=== PATIENT | male | born 1990 | race Caucasian/White ===

== ENCOUNTER 2017-01-08 10:47 | Emergency (ER) | payer BC ==
--- NOTE | 2017-01-08 11:07 | ER Document Report ---
ED Medical Screen (RME) - General Chief Complaint: Headache Stated Complaint: HEAD PAIN Time seen by provider: 11:05 Mode of Arrival: Ambulatory Information source: Patient Notes: 26-year-old male presents to ED for severe level V out of 5 headache to the right side of his head to include his right cheek ear taoist. He states it woke him up from his sleep this morning around 2 AM it was a constant throbbing. States he does have a runny nose and he does have a cough cavity to his wisdom teeth on the right. When I palpated the tooth to go home and all around and he denied any pain. I looked in his ear there is no otitis media or otitis externa. His a past medical history of a ruptured spleen tonsil and adenoid removal and tendon damage to the left ankle. He also states he has a history of a very bad sinusitis. Consult to Dr. Nascimento and will order a CAT scan of the head. I have greeted and performed a rapid initial assessment of this patient. A comprehensive ED assessment and evaluation of the patient, analysis of test results and completion of medical decision making process will be conducted by an additional ED providers. TRAVEL OUTSIDE OF THE [place] IN LAST 30 DAYS: No - HPI Onset: This morning - Related Data Allergies/Adverse Reactions: No Known Allergies Allergy (Verified 01/08/17 10:54) Past Medical History Renal/ Medical History: Denies: Hx Peritoneal Dialysis Physical Exam - Vital signs Vitals: Temp Pulse Resp BP Pulse Ox 97.4 F 72 18 148/85 H 100 01/08/17 10:54 01/08/17 10:54 01/08/17 10:54 01/08/17 10:54 01/08/17 10:54 Course - Vital Signs Vital signs: Temp Pulse Resp BP Pulse Ox 97.4 F 72 18 148/85 H 100 01/08/17 10:54 01/08/17 10:54 01/08/17 10:54 01/08/17 10:54 01/08/17 10:54
[2017-01-08] MEDS ORDERED: AMOXICILLIN TRIHYDRATE 500 MG CAPSULE PO ONE (12:13)
[2017-01-08] MEDS ORDERED: IBUPROFEN 800 MG TABLET PO ONE (12:13)
[2017-01-08] MEDS ORDERED: DIPHENHYDRAMINE HCL 50 MG CAPSULE PO ONE (12:13)
[2017-01-08] MEDS ORDERED: GUAIFENESIN 600 MG TABLET.SA PO ONE (12:13)
[2017-01-08] MEDS ORDERED: PROCHLORPERAZINE MALEATE 10 MG TABLET PO ONE (12:13)
--- NOTE | 2017-01-08 12:18 | ER Document Report ---
ED Headache - General Chief Complaint: Headache Stated Complaint: HEAD PAIN Time seen by provider: 12:13 Mode of Arrival: Ambulatory Information source: Patient Notes: 26-year-old male presented to ED for severe level V out of 5 headache to the right side of his head to include his cheek ear and protestant. He states he woke up about 2:00 this morning from his sleep with this pain that is throbbing. He has had a runny nose cough and has a large cavity to his right wisdom tooth. He denies any tenderness to the tooth. And I do not see any otitis media or otitis externa on this side. TRAVEL OUTSIDE OF THE [place] IN LAST 30 DAYS: No - HPI Patient complains to provider of: Headache, Facial pain Onset: This morning Onset was: Abrupt - UP with right-sided headache this morning Timing: Still present Quality of pain: Throbbing Severity: Moderate Pain Level: 3 Associated symptoms: Other - Runny nose cavity to right wisdom tooth postnasal drip and headache to the right side of the face and head Exacerbated by: Movement Similar symptoms previously: No Recently seen / treated by doctor: No - Related Data Allergies/Adverse Reactions: No Known Allergies Allergy (Verified 01/08/17 10:54) Past Medical History - General Information source: Patient - Social History Smoking Status: Current Every Day Smoker Cigarette use (# per day): Yes - half pack a day Chew tobacco use (# tins/day): No Smoking Education Provided: Yes - less than 2 minutes Frequency of alcohol use: Occasional Drug Abuse: None Occupation: manages apartment complex Lives with: Alone Family History: Malignancy, Thyroid Disfunction Patient has suicidal ideation: No Patient has homicidal ideation: No - Past Medical History Cardiac Medical History: Reports: None Pulmonary Medical History: Reports: None EENT Medical History: Reports: Other - Sinusitis Neurological Medical History: Reports: None Endocrine Medical History: Reports: None Renal/ Medical History: Reports: None Malignancy Medical History: Reports None GI Medical History: Reports: None Musculoskeltal Medical History: Reports Hx Musculoskeletal Trauma - Tendon damage to her left ankle Skin Medical History: Reports None Psychiatric Medical History: Reports: None Traumatic Medical History: Reports: Hx Spleen Laceration/Rupture Infectious Medical History: Reports: None Past Surgical History: Reports: Hx Adenoidectomy, Hx Oral Surgery - [place] teeth , Hx Orthopedic Surgery - Tendon damage repair, Hx Tonsillectomy Review of Systems - Review of Systems Constitutional: No symptoms reported EENT: Ear pain, Nose discharge, Sinus discharge, Other - Headache Cardiovascular: No symptoms reported Respiratory: No symptoms reported Gastrointestinal: No symptoms reported Genitourinary: No symptoms reported Male Genitourinary: No symptoms reported Musculoskeletal: No symptoms reported Skin: No symptoms reported Hematologic/Lymphatic: No symptoms reported Neurological/Psychological: Headaches -: Yes All other systems reviewed and negative Physical Exam - Vital signs Vitals: Temp Pulse Resp BP Pulse Ox 97.4 F 72 18 148/85 H 100 01/08/17 10:54 01/08/17 10:54 01/08/17 10:54 01/08/17 10:54 01/08/17 10:54 Interpretation: Normal - General General appearance: Appears well, Alert - HEENT Head: Normocephalic, Atraumatic Eyes: Normal Pupils: PERRL Ears: Normal External canal: Normal Tympanic membrane: Normal Sinus: Maxillary Nasal: Purulent discharge, Swelling Mouth/Lips: Normal Mucous membranes: Normal Teeth diagram: 1 - Large cavity Pharynx: Normal Neck: Normal - Respiratory Respiratory status: No respiratory distress Chest status: Nontender Breath sounds: Normal Chest palpation: Normal - Cardiovascular Rhythm: Regular Heart sounds: Normal auscultation Murmur: No - Abdominal Inspection: Normal Distension: No distension Bowel sounds: Normal Tenderness: Nontender Organomegaly: No organomegaly - Back Back: Normal, Nontender - Extremities General upper extremity: Normal inspection, Nontender, Normal color, Normal ROM , Normal temperature General lower extremity: Normal inspection, Nontender, Normal color, Normal ROM , Normal temperature, Normal weight bearing. No: Briana's sign - Neurological Neuro grossly intact: Yes Cognition: Normal Orientation: AAOx4 [place]hav[place] Coma Scale Eye Opening: Spontaneous [place] Coma Scale Verbal: Oriented [place] Coma Scale Motor: Obeys Commands [place] Coma Scale Total: 15 Speech: Normal Cranial nerves: Normal Cerebellar coordination: Normal Motor strength normal: LUE, RUE, LLE, RLE Additional motor exam normals: Equal safety instructor Babinski reflex: Normal (flexor plantar) Sensory: Normal Biceps - Reflex grade: 2 = Normal Triceps - Reflex grade: 2 = Normal Brachioradialis - Reflex grade: 2 = Normal Knee - Reflex grade: 2 = Normal Ankle - Reflex grade: 2 = Normal - Psychological Associated symptoms: Normal affect, Normal mood - Skin Skin Temperature: Warm Skin Moisture: Dry Skin Color: Normal Course - Re-evaluation Re-evalutation: 01/08/17 12:43 Discussed signs and symptoms with Dr. Nascimento and he stated that the patient should have a CT of the head. CT of the head was completed discussed with patient and family. We will treat patient with amoxicillin for sinus infection. Also treat with Benadryl Mucinex ibuprofen and Compazine for his headache. We'll discharge patient home to follow-up with ENT for small mucus retention cyst in the left maxillary sinus. - Vital Signs Vital signs: Temp Pulse Resp BP Pulse Ox 97.6 F 70 16 140/80 H 100 01/08/17 12:49 01/08/17 12:49 01/08/17 12:49 01/08/17 12:49 01/08/17 12:49 - Diagnostic Test Radiology reviewed: Image reviewed, Reports reviewed Discharge - Discharge Clinical Impression: Sinusitis Qualifiers: Sinusitis location: maxillary Chronicity: acute Recurrence: not specified as recurrent Qualified Code(s): J01.00 - Acute maxillary sinusitis, unspecified Headache Qualifiers: Headache type: unspecified Headache chronicity pattern: acute headache Intractability: not intractable Qualified Code(s): R51 - Headache Condition: Stable Disposition: HOME, SELF-CARE Additional Instructions: Sinusitis You have sinusitis, an infection of the sinus cavities of the face. The sinuses are air-filled chambers which open into the inside of the nose. Bacteria and pus fill a sinus, causing pain, drainage, and fever. Sinusitis is treated with antibiotics. Often, expectorants (to thin the sinus mucous) or decongestants (to reduce swelling) are prescribed as well. Healing requires seven to 10 days. Avoid chemical fumes, pollens, dusts, and smoke (especially cigarette smoke ). Keep the air humidified in your bedroom and work area and take plenty of liquids by mouth. This condition can be serious if the infection spreads. If your symptoms worsen, or if you develop severe headache, high fever, stiff neck, or a rash, you must call the doctor or return for re-evaluation. HEADACHE: The physician does not feel that the headache you are experiencing has a serious underlying cause. Most headaches are due to emotional stress, with resultant muscle tension (tension headache). Occasionally, headaches are secondary to changes in the blood vessels of the scalp (vascular headache and migraine headache). Sometimes, a headache is the first symptom of another developing illness, such as a viral infection. You have no evidence of stroke, bleeding, meningitis, or other serious cause of your headache. The treatment of headaches varies with the severity and cause of the pain. Not all headaches need pain shots. In fact, there is evidence that using narcotics for headaches may make them worse in the long run. The physician will determine the therapy that's in your best interest. If you develop a fever, if the headache is different from any you've previously experienced, or if the headache progressively worsens, then call your physician at once or go to the emergency room. USE OF DIPHENHYDRAMINE: Diphenhydramine (Benadryl) is an antihistamine and has been recommended to help treat your headache and to prevent side effects of other medications used to treat headaches. The medication can be repeated four times daily. Age Elixir (12.5 mg/tsp) 25 mg pill adult 1-2 tabs Antihistamines may cause drowsiness, especially with the first dose. Do not operate machinery or drive while under the effects of the medication. Do not combine the medication with alcohol, or with any other medication without talking to your doctor. COMPAZINE FOR HEADACHE: You have received therapy for headaches Compazine. This treatment is dramatically successful in relieving the headache in about 50 percent of cases. When it works, it provides a rapid method of eliminating the headache without resorting to narcotics (and the problems associated with them). Most patients still feel fully alert after the Compazine, but others may be slightly drowsy. It's best not to drive or work with machinery for six to eight hours. Do not take alcohol or other medication unless you discuss it with the doctor. If you develop tightness and spasms in your muscles, especially the neck and tongue, you should return. This is a side effect which can be treated. Ibuprofen Ibuprofen is an excellent, safe drug for pain control. In addition, it has potent antiinflammatory effects which are beneficial, especially in the treatment of injuries, arthritis, or tendonitis. It's best to take ibuprofen with food. Persons with ulcer disease or allergy to aspirin should notify their physician of this before taking ibuprofen. Take the medication exactly as prescribed. Don't take additional doses unless instructed to do so by your doctor. If you develop wheezing, shortness of breath, hives, faintness, stomach pain, vomiting, or dark black stools, return for re-evaluation at once. Amoxicillin Amoxicillin is a member of the penicillin family. It covers the germs likely to cause ear, bronchial, and urinary infections better than plain penicillin. Amoxicillin can be taken without regard to meals. Nausea after taking the medication is rare, but can occur. Diarrhea can occur, particularly in small children. Vaginal yeast infections and oral thrush in infants are also common. Contact your physician if these problems occur. Allergy to penicillins is common. If you have had an allergic reaction to any drug of the penicillin family, you should never take any other penicillin. Notify your doctor at once if you develop hives, itching, swelling, faintness, or shortness of breath. Less serious side effects can include nausea or diarrhea. FOLLOW-UP CARE: If you have been referred to a physician for follow-up care, call the physician s office for an appointment as you were instructed or within the next two days. If you experience worsening or a significant change in your symptoms, notify the physician immediately or return to the Emergency Department at any time for re-evaluation. Prescriptions: Amoxicillin Trihydrate [Amoxil 875 mg Tablet] 1 tab PO BID #20 tablet Forms: Elevated Blood Pressure, Smoking Cessation Education, Return to Work Referrals: GIO AGUILLON DO [SANTOS ALMANZAR] - Follow up as needed
[2017-01-08 12:50] VITALS: BP 140/80
== END 2017-01-08 12:50 | disposition home or self-care (01) ==
LOC: ER 10:47
DX: J01.00 Acute maxillary sinusitis, unspecified (principal); R51 Headache; R09.89 Other specified symptoms and signs involving the circulatory and respiratory systems; R05 Cough; K08.89 Other specified disorders of teeth and supporting structures; F17.210 Nicotine dependence, cigarettes, uncomplicated
CPT/HCPCS: 99284; 70450; S0183